=== PATIENT | female | born 1990 | race Caucasian/White ===

== ENCOUNTER 2016-12-20 11:28 | Emergency (ER) | payer OTHER ==
[2016-12-20 11:41] VITALS: BP 123/62; PULSE 86; TEMP 98.1; BMI 22.8
[2016-12-20] MEDS ORDERED: IBUPROFEN 600 MG TABLET (FP) PO ONE ×2 (12:48→12:51)
[2016-12-20] MEDS ORDERED: SULFAMETHOXAZOLE/TRIMETHOPRIM 800MG/160MG D.S. TABLET PO ONE (12:48)
[2016-12-20] MEDS ORDERED: CEPHALEXIN MONOHYDRATE 500 MG CAPSULE (UD) PO ONE (12:48)
[2016-12-20] MEDS ORDERED: SULFAMETHOXAZOLE/TRIMETHOPRIM 800MG/160MG D.S. TABLET ONE (12:51)
[2016-12-20] MEDS ORDERED: CEPHALEXIN MONOHYDRATE 500 MG CAPSULE (UD) ONE (12:51)
--- NOTE | 2016-12-20 12:54 | PDOC ---
History of Present Illness - General Chief Complaint: Abscess Boil Stated Complaint: ABSCESS BOIL Time Seen by Provider: 12/20/16 12:27 History Source: Patient Exam Limitations: No Limitations - History of Present Illness Initial Comments: 12/20/16 12:49 My chief complaint: Redness of skin the pubic area with tenderness History of present illness: Patient is a 26-year-old female with no significant medical history here today complaining of a tender reddened area pubic area since last night. Patient reports that she shaved area approximately one week ago. Patient denies ever having any skin abscesses in the past. Patient denies any fever or chills. She denies any chance of . Timing/Duration: getting worse Severity: moderate Associated Symptoms: reports: denies symptoms Past History - Past Medical History Allergies/Adverse Reactions: Allergies Allergy/AdvReac Type Severity Reaction Status Date / Time No Known Allergies Allergy Verified 12/20/16 11:41 Home Medications: Ambulatory Orders Cephalexin Monohydrate [Keflex -] 500 mg PO Q8H #20 capsule 12/20/16 Sulfamethoxazole/Trimethoprim [Bactrim Ds -] 1 tab PO BID #13 tablet 12/20/16 Other medical history: denies - Surgical History Appendectomy: Yes - Reproductive History (#): 2 Para: 2 Cervical CA: No Dysfunctional Uterine Bleeding: No Ectopic : No Endometrial CA: No Polycystic Ovaries: No Therapeutic (s) & number: No Tubal Ligation: No - Immunization History Td Vaccination: No Immunization Up to Date: No - Suicide/Smoking/Psychosocial Hx Smoking Status: No Smoking History: Never smoked Have you smoked in the past 12 months: No Number of Cigarettes Smoked Daily: 0 Cigars Per Day: 0 Information on smoking cessation initiated: No Hx Alcohol Use: No Drug/Substance Use Hx: No Substance Use Type: None Review of Systems - Review of Systems Able to Perform ROS?: Yes Constitutional: No: Symptoms Reported HEENTM: No: Symptoms Reported Respiratory: No: Symptoms reported Cardiac (ROS): No: Symptoms Reported ABD/GI: No: Symptoms Reported : No: Symptoms Reported Musculoskeletal: No: Symptoms Reported Integumentary: Yes: Erythema (tender upper pubic area ) Neurological: No: Symptoms reported *Physical Exam - Vital Signs Last Vital Signs Temp Pulse Resp BP Pulse Ox 98.1 F 86 17 123/62 100 12/20/16 11:39 12/20/16 11:39 12/20/16 11:39 12/20/16 11:39 12/20/16 11:39 - Physical Exam General Appearance: Yes: Appropriately Dressed Respiratory/Chest: positive: Lungs Clear, Normal Breath Sounds. negative: Chest Tender, Respiratory Distress Cardiovascular: positive: Regular Rhythm, Regular Rate, S1, S2 Integumentary: positive: Erythema (upper pubic area tenderness 4 cm diameter, area is non fluculent), Other Neurologic: positive: Alert, Normal Response, Responsive Medical Decision Making - Medical Decision Making 12/20/16 12:50 Patient is a 26-year-old female with no significant medical history here today complaining of a tender reddened area pubic area since last night. Patient reports that she shaved area approximately one week ago. Patient denies ever having any skin abscesses in the past. Patient denies any fever or chills. She denies any chance of . cellulitis folliculitis pubic area PLAN: keflex 500 mg po now than every 8 hrs for 7 days bactrim DS 1 tab po now than bid for 7 days ibuprofen 600 mg po now 12/20/16 12:57 *DC/Admit/Observation/Transfer Diagnosis at time of Disposition: Cellulitis of pubic region, Acute folliculitis - Discharge Dispostion Disposition: HOME Condition at time of disposition: Stable - Patient Instructions Additional Instructions: Return to emergency room if any increased redness of area involved or any fever or chills Take ibuprofen as needed as directed by educational assistant teacher for pain Apply a warm soaks every 2 hours for 15 minutes while awake for the next 2 days Patient voiced understanding of discharge instructions and all questions were answered - Post Discharge Activity Forms/Work/School Notes: Back to Work
== END 2016-12-20 13:00 | disposition home or self-care (01) ==
LOC: JERFT 11:28
DX: L03.314 Cellulitis of groin (principal); L73.8 Other specified follicular disorders
CPT/HCPCS: 99281-25

== ENCOUNTER 2016-12-26 08:19 | Emergency (ER) | payer OTHER ==
[2016-12-26 08:35] VITALS: BMI 22.8
[2016-12-26] MEDS ORDERED: IBUPROFEN 600 MG TABLET (FP) PO ONE ×2 (09:14→09:44)
--- NOTE | 2016-12-26 09:21 | PDOC ---
History of Present Illness - General Chief Complaint: Rash Stated Complaint: PAIN, REDNESS TO AFFECTED AREA Time Seen by Provider: 12/26/16 08:48 History Source: Patient Exam Limitations: No Limitations - History of Present Illness Initial Comments: 12/26/16 09:22 My chief complaint: Fever, lower back pain, right groin and right thigh tenderness, nausea last night with headache History of present illness: Patient is a 26-year-old female with no significant medical history here today complaining of sudden onset of fever with chills last night and lower back pain with slight nausea and headache. Patient reports having her right groin tenderness with inguinal lymphadenopathy since 2016. Patient is on Depo last got injection September 2016. Patient denies any abnormal vaginal discharge. Patient denies being sexually active for one any half years. Patient was here seen here on 12/20/2016 for raised tender reddened area mid pubic area (shaved area keflex and Bactrim was ordered. Patient is any urinary symptoms. Patient denies any radiation of pain from back down the legs or any weakness or numbness of legs or any saddle anesthesia or incontinency. Patient reports that she lifted a laundry basket yesterday in the morning but did not feel back pain until the evening. She denies any headache currently or any nausea or any vomiting or any diarrhea. Patient reports her bowel movements have been normal. Patient denies any sick contacts or recent travel.Patient reports seeing her primary care provider on 12/23/2016 due to tenderness of right groin area and right thigh was given a prescription for ibuprofen. She noticed petechiae of pubic area last night. Patient does not have any tenderness of left, or mid pubic area only right lateral pubic area. Differential to include PID, ovarian cyst rupture, 12/26/16 09:31 Current medication keflex 500 mg q 8 hr bactrim DS 1 tab bid Surgeries: appendectomy PCP Dr. Garcia 12/26/16 09:33 Timing/Duration: getting worse Severity: moderate Associated Symptoms: reports: fever/chills (started 12/25/16), headaches (last night ), nausea/vomiting (nausea last nigth ), other (lower back pain, rt. groin pain with lymphanopathy, rt. anterior thigh pain ) Past History - Past Medical History Allergies/Adverse Reactions: Allergies Allergy/AdvReac Type Severity Reaction Status Date / Time No Known Allergies Allergy Verified 12/26/16 08:30 Home Medications: Ambulatory Orders Cephalexin Monohydrate [Keflex -] 500 mg PO Q8H #20 capsule 12/20/16 Sulfamethoxazole/Trimethoprim [Bactrim Ds -] 1 tab PO BID #13 tablet 12/20/16 - Surgical History Appendectomy: Yes - Reproductive History (#): 2 Para: 2 Cervical CA: No Dysfunctional Uterine Bleeding: No Ectopic : No Endometrial CA: No Polycystic Ovaries: No Therapeutic (s) & number: No Tubal Ligation: No - Immunization History Td Vaccination: No Immunization Up to Date: No - Suicide/Smoking/Psychosocial Hx Smoking Status: No Smoking History: Never smoked Have you smoked in the past 12 months: No Number of Cigarettes Smoked Daily: 0 Cigars Per Day: 0 Information on smoking cessation initiated: No Hx Alcohol Use: Yes Drug/Substance Use Hx: No Substance Use Type: None Review of Systems - Review of Systems Able to Perform ROS?: Yes Constitutional: Yes: Chills, Fever HEENTM: No: Symptoms Reported Respiratory: No: Symptoms reported Cardiac (ROS): No: Symptoms Reported ABD/GI: Yes: Nausea (last night not now ) : Yes: Symptoms Reported (last night, none now ), Flank Pain (b/l ). No: Burning, Dysuria, Discharge, Frequency, Hematuria, Incontinence, Pain, Urgency Musculoskeletal: Yes: Back Pain (b/l lower back ) Integumentary: Yes: Other (petechiae public area scattered ) Neurological: Yes: Headache (last night ) *Physical Exam - Vital Signs Last Vital Signs Temp Pulse Resp BP Pulse Ox 100.1 F H 112 H 20 100/54 100 12/26/16 08:31 12/26/16 08:31 12/26/16 08:31 12/26/16 08:31 12/26/16 08:31 - Physical Exam General Appearance: Yes: Appropriately Dressed HEENT: positive: TMs Normal, Pharyngeal Erythema, Tonsillar Erythema (no uvular deviation ). negative: Tonsillar Exudate Neck: positive: Lymphadenopathy (L). negative: Lymphadenopathy (R) Respiratory/Chest: positive: Lungs Clear, Normal Breath Sounds. negative: Chest Tender, Respiratory Distress Cardiovascular: positive: Regular Rhythm, Regular Rate, S1, S2 Female Pelvic Exam: positive: cervical os closed, normal adnexa (tenderness rt. ), normal size ovaries, discharge (copius amount thick white discharge non odorous ), adnexal tenderness (rt. ). negative: CMT, lesions, Bartholin mass, Scalene Gland, uterus, Urethra, vaginal bleeding Gastrointestinal/Abdominal: positive: Normal Bowel Sounds, Soft, Tenderness ( diffuse/ rt. lower quadrant ). negative: Organomegaly, Increased Bowel Sounds, Distended, Guarding, Rebound, Hernia, Mass, Hepatomegaly, Spleenomegaly Musculoskeletal: positive: Normal Inspection, CVA Tenderness (R) (lower ), CVA Tenderness (L) (lower ). negative: CVA Tenderness, Decreased Range of Motion, Muscle Spasm, Vertebral Tenderness Integumentary: positive: Petechiae (scattered pubic area ), Other. negative: Swelling Neurologic: positive: Alert, Normal Response, Motor Strength 5/5, Respond to painful stimul, Responsive, Other (negative SLR b/l ). negative: Numbness, Sensory Deficit (legs ) Deep Tendon Reflexes: Knee (L): 4+, Knee (R): 4+ ED Treatment Course - LABORATORY CBC & Chemistry Diagram: 12/26/16 09:20 12/26/16 09:20 Medical Decision Making - Medical Decision Making 12/26/16 09:27 Patient is a 26-year-old female with no significant medical history here today complaining of sudden onset of fever with chills last night and lower back pain with slight nausea and headache. Patient reports having her right groin tenderness with inguinal lymphadenopathy since 12/23/2016. Patient is on Depo last got injection September 2016. Patient denies any abnormal vaginal discharge. Patient denies being sexually active for one any half years. Patient was here seen here on 12/20/2016 for raised tender reddened area mid pubic area (shaved area keflex and Bactrim was ordered. Patient is any urinary symptoms. Patient denies any radiation of pain from back down the legs or any weakness or numbness of legs or any saddle anesthesia or incontinency. Patient reports that she lifted a laundry basket yesterday in the morning but did not feel back pain until the evening. She denies any headache currently or any nausea or any vomiting or any diarrhea. Patient reports her bowel movements have been normal. Patient denies any sick contacts or recent travel. Patient reports seeing her primary care provider on 01/23/2017 due to tenderness of right groin area and right thigh was given a prescription for ibuprofen. She noticed petechiae of pubic area last night. Patient does not have any tenderness of left, or mid pubic area only right lateral pubic area. Differential to include PID, ovarian cyst rupture, pyelonephritis R/O PID R/O ovarian cyst rupture R/O pyelonephritis R/O STD PLAN u/a urinalysis urine C & S cbc with diff CMP RPR throat C & S influenza A & B rapid genital culture IV insert ibuprofen 600 mg po now 12/26/16 09:33 12/26/16 09:44 CBC WBC 2.6 K/mm3 (4.0-10.0) L D 12/26/16 09:20 RBC 4.15 M/mm3 (3.60-5.2) 12/26/16 09:20 Hgb 13.1 GM/dL (10.7-15.3) D 12/26/16 09:20 Hct 37.2 % (32.4-45.2) 12/26/16 09:20 MCV 89.8 fl (80-96) 12/26/16 09:20 MCH 31.7 pg (25.7-33.7) 12/26/16 09:20 MCHC 35.3 g/dl (32.0-36.0) 12/26/16 09:20 RDW 12.7 % (11.6-15.6) 12/26/16 09:20 Plt Count 167 K/MM3 (134-434) 12/26/16 09:20 MPV 8.3 fl (7.5-11.1) 12/26/16 09:20 Neutrophils % 75.1 % (42.8-82.8) 12/26/16 09:20 Lymphocytes % 9.5 % (8-40) 12/26/16 09:20 Monocytes % 13.0 % (3.8-10.2) H 12/26/16 09:20 Eosinophils % 1.7 % (0-4.5) D 12/26/16 09:20 Basophils % 0.7 % (0-2.0) 12/26/16 09:20 12/26/16 10:15 Laboratory Results 12/26/16 12/26/16 09:20 09:20 Urine Color Lt. yellow Urine Appearance Clear Urine pH 8.5 H D Urine Protein Negative Urine Glucose (UA) Negative Urine Ketones Negative Urine Blood Negative Urine Nitrite Negative Urine Bilirubin Negative Urine Urobilinogen 0.2 Urine HCG, Qual Negative 12/26/16 09:20 Group A Strep Rapid Antigen - Preliminary Throat 12/26/16 09:20 Influenza Types A,B Antigen (ED) - Preliminary Nasopharyngeal Swab - Preliminary 12/26/16 09:20 RBC 4.15 MCV 89.8 MCHC 35.3 RDW 12.7 MPV 8.3 Neutrophils % 75.1 Lymphocytes % 9.5 Monocytes % 13.0 H Eosinophils % 1.7 D Basophils % 0.7 12/26/16 10:15 Pt. transferred to main ED for further evaluation, charge nurse Peggy hilton, pt. is medically stable to be transferred to main ED, MD or CUT ROLL MACHINE OFFBEARER, PA not asigned as yet will call to speak with me when assigned 12/26/16 10:16 12/26/16 11:49 12/26/16 17:35 *DC/Admit/Observation/Transfer Diagnosis at time of Disposition: Abdominal pain in female Fever Qualifiers: Fever type: unspecified Qualified Code(s): R50.9 - Fever, unspecified; R50.9 - Fever, unspecified Back pain Qualifiers: Back pain location: low back pain Chronicity: acute Back pain laterality: unspecified Sciatica presence: without sciatica Qualified Code(s): M54.5 - Low back pain; M54.5 - Low back pain
[2016-12-26 09:42] LABS: BASOPHIL 0.7 % (0-2.0); EOSINOPHIL 1.7 % (0-4.5)
[2016-12-26 09:44] LABS: MCH 31.7 pg (25.7-33.7); MCHC 35.3 g/dl (32.0-36.0); MEAN CELL VOLUME 89.8 fl (80-96); MEAN PLT VOLUME 8.3 fl (7.5-11.1); NEUTROPHILS 75.1 % (42.8-82.8); PLATELET COUNT 167 K/MM3 (134-434); RDW 12.7 % (11.6-15.6); WHITE BLOOD COUNT 2.6 K/mm3 (4.0-10.0)
[2016-12-26 09:46] LABS: PH,URINE 8.5 (5.0-8.0); URINE APPEARANCE CLEAR; URINE BILIRUBIN NEGATIVE (NEGATIVE); URINE BLOOD NEGATIVE (NEGATIVE); URINE COLOR LT. YELLOW; URINE GLUCOSE (UA) NEGATIVE (NEGATIVE); URINE KETONE NEGATIVE (NEGATIVE); URINE NITRITE NEGATIVE (NEGATIVE); URINE PROTEIN NEGATIVE (NEGATIVE); URINE UROBILINOGEN 0.2 mg/dL (0.2-1.0)
[2016-12-26 10:14] LABS: ALBUMIN 4.2 g/dl (3.4-5.0); ALK PHOS 83 U/L (45-117); ANION GAP 7 (8-16); BILIRUBIN,TOTAL 0.5 mg/dL (0.2-1.0); CALCIUM 8.8 mg/dL (8.5-10.1); CO2 24 mmol/L (21-32); CREATININE 0.9 mg/dL (0.55-1.02); GLUCOSE,RANDOM 87 mg/dL (74-106); SGOT/AST 22 U/L (15-37); SGPT/ALT 24 U/L (12-78); TOT PROT 7.7 g/dl (6.4-8.2)
--- NOTE | 2016-12-26 12:52 | PDOC ---
*Physical Exam - Vital Signs Last Vital Signs Temp Pulse Resp BP Pulse Ox 100.1 F H 112 H 20 100/54 100 12/26/16 08:31 12/26/16 08:31 12/26/16 08:31 12/26/16 08:31 12/26/16 08:31 ED Treatment Course - LABORATORY CBC & Chemistry Diagram: 12/26/16 09:20 12/26/16 09:20 - ADDITIONAL ORDERS Additional order review: Laboratory Results 12/26/16 12/26/16 12/26/16 09:20 09:20 09:20 Sodium 135 L Potassium 4.3 D Chloride 104 Carbon Dioxide 24 Anion Gap 7 L BUN 10 D Creatinine 0.9 D Creat Clearance w eGFR > 60 Random Glucose 87 Calcium 8.8 Total Bilirubin 0.5 AST 22 ALT 24 Alkaline Phosphatase 83 Total Protein 7.7 Albumin 4.2 Urine Color Lt. yellow Urine Appearance Clear Urine pH 8.5 H D Urine Protein Negative Urine Glucose (UA) Negative Urine Ketones Negative Urine Blood Negative Urine Nitrite Negative Urine Bilirubin Negative Urine Urobilinogen 0.2 Urine HCG, Qual Negative 12/26/16 09:20 Gram Stain - Final Vaginal 12/26/16 09:20 Influenza Types A,B Antigen (ED) - Final Nasopharyngeal Swab - Final 12/26/16 09:20 Group A Strep Rapid Antigen - Final Throat 12/26/16 09:20 RBC 4.15 MCV 89.8 MCHC 35.3 RDW 12.7 MPV 8.3 Neutrophils % 75.1 Lymphocytes % 9.5 Monocytes % 13.0 H Eosinophils % 1.7 D Basophils % 0.7 - Medications Given in the ED: ED Medications Discontinued Medications Generic Name Dose Route Start Last Admin Trade Name Farshadq PRN Reason Stop Dose Admin Ibuprofen 600 mg 12/26/16 09:14 12/26/16 09:50 Motrin - PO 12/26/16 09:15 600 mg ONCE ONE Administration Medical Decision Making - Medical Decision Making Signout received from KRUNAL Roman. Briefly, this is a healthy 26 year old female who presented to [facility] on with a tender, erythematous pubic mass and was placed on Bactrim/Keflex. She subsequently saw her PCP for the same complaint and was given ibuprofen for fever. She returned to [facility] again today with fevers/chills, inguinal lymphadenopathy, headache, nausea, back pain, and pubic petechiae. She is now transferred to the Main ED for further evaluation. V/s on arrival are notable for P 112 and T 100.1(last took Motrin during the night). Surgical history: C/s x 2, appendectomy Budget Coordinator: a2 REVIEW OF SYSTEMS: GENERAL/CONSTITUTIONAL: Fevers/chills. No weakness. No weight change. HEAD, EYES, EARS, NOSE AND THROAT: No change in vision. No ear pain or discharge. No sore throat. CARDIOVASCULAR: No chest pain or palpitations. RESPIRATORY: Dr cough. No wheezing or shortness of breath. GASTROINTESTINAL:Nausea. No vomiting, diarrhea or constipation. GENITOURINARY: No dysuria, frequency, or change in urination. MUSCULOSKELETAL: Low back pain. SKIN: Pubic "red spots." NEUROLOGIC: Headache. No vertigo, loss of consciousness, or loss of sensation. PSYCHIATRIC: No depression or anxiety. ENDOCRINE: No increased thirst. No abnormal weight change. HEMATOLOGIC/LYMPHATIC: No anemia, easy bleeding, or history of blood clots. ALLERGIC/IMMUNOLOGIC: No hives or skin allergy. No latex allergy. PHYSICAL EXAM: GENERAL: The patient is awake, alert, and fully oriented, in no acute distress. HEAD: Normal with no signs of trauma. ENT: Pupils equal, round and reactive to light, extraocular movements intact, sclera anicteric, conjunctiva clear. Neck supple. Cervical adenopathy. LUNGS: Clear to auscultation bilaterally. Normal excursion. No respiratory distress or use of accessory muscles. CV: RRR, S1/S2, no MRG. Cap refill < 2 sec. ABDOMEN: Soft, non-distended, tender to palpation in RLQ. EXTREMITIES: Normal range of motion, no edema. Right inguinal adenopathy. NEUROLOGICAL: Normal speech, normal gait. CN II-XII grossly intact. PSYCH: Normal mood, normal affect. SKIN: Warm, dry, normal turgor. Petechiae on mons pubis. SUPERINTENDENT DRILLING: (Performed by KRUNAL Roman) Copius white vaginal discharge, right adnexal tenderness. A/P: 26 year old female with 3rd visit for cellulitis/abscess on mons pubis- improved with Bactrim/Keflex but now with systemic symptoms including fevers/ chills, headache, nausea. Significant adenopathy and RLQ abdominal tenderness on exam. Differential includes but is not limited to PID, TOA, UA/ pyelonephritis. 1. Labs notable for WBC 2.6 2. Will add blood cultures 3. UA is pending 4. CTAP with PO/IV contrast and pelvic u/s to r/o TOA 5. Empiric abx 12/26/16 16:55 CTAP reviewed: Partially ruptured ovarian cysts/follicles with small amount of free fluid in the right adnexa. Prominent vessels suggestive of pelvic congestion syndrome. U/s reviewed: Simple cyst/dominant follicle in the right ovary measuring 1.1cm. Prominent vessels in the right and left adnexa; correlate clinically for pelvic congestion syndrome. CXR wet read: no infiltrate Examined with attending physician Dr. Castillo. Will treat with Ceftriaxone/azithromycin for possible PID. Will need laundromat worker referral. *DC/Admit/Observation/Transfer Diagnosis at time of Disposition: Abdominal pain in female Fever Qualifiers: Qualified Code(s): R50.9 - Fever, unspecified Back pain Qualifiers: Qualified Code(s): M54.5 - Low back pain - Discharge Dispostion Disposition: HOME Condition at time of disposition: Stable Admit: No - Referrals Referrals: Linda Christie MD [Primary Care Provider] - Lulu Castano MD [Staff Physician] - Call tomorrow (x ray service technician) - Patient Instructions Printed Discharge Instructions: DI for Pelvic Inflammatory Disease Additional Instructions: -You were given antibiotics for possible pelvic inflammatory disease -Take ibuprofen 400-600mg (2-3 tablets) every 6 hours as needed for pain and fever -Please follow up with pharmacy manager (referral enclosed) and review the copies of your CT and ultrasound reports with them -You will receive a call if any of your cultures come back positive -Return here for worsening pain, persistent fevers, or any other concerning symptoms - Post Discharge Activity Forms/Work/School Notes: Back to Work
[2016-12-26] MEDS ORDERED: SODIUM CHLORIDE 1,000 ML IV STA (13:01)
[2016-12-26] MEDS ORDERED: ACETAMINOPHEN 1000 MG/100 ML VIAL (NON FORMULARY) IVPB ONE (13:01)
[2016-12-26] MEDS ORDERED: ONDANSETRON 4 MG/2 ML VIAL IVPUSH ONE (13:14)
[2016-12-26] MEDS ORDERED: ACETAMINOPHEN 325 MG TABLET (FP) PO ONE (13:14)
[2016-12-26] MEDS ORDERED: ONDANSETRON 4 MG/2 ML VIAL ONE (13:18)
[2016-12-26] MEDS ORDERED: ACETAMINOPHEN 325 MG TABLET (FP) ONE (13:18)
[2016-12-26 14:20] LABS: URINE LEUK ESTERASE Negative (NEGATIVE)
[2016-12-26] MEDS ORDERED: CEFTRIAXONE 250 MG in DEXTROSE 5%-WATER - 50 ML IVPB ONE (16:54)
[2016-12-26] MEDS ORDERED: AZITHROMYCIN 1 GM PACKET PO ONE (16:54)
[2016-12-26] MEDS ORDERED: AZITHROMYCIN 250 MG TABLET ONE (17:00)
[2016-12-26] MEDS ORDERED: cefTRIAXone SODIUM 1 GM VIAL ONE (17:01)
[2016-12-26 18:08] VITALS: BP 132/80; PULSE 92; TEMP 99.9
--- NOTE | 2016-12-27 18:34 | PDOC ---
Patient Follow-up (Call Back) - Post ED Follow - Up Chief Complaint: SIRS, Suspected/Possible Condition at time of discharge: Fair Disposition at time of original discharge: HOME Reason for Call Back: Abnwl. Microbiology (gardnerella vaginalis genital culture ) - Disposition Rx Needed: Yes (metronidazole 500mg bid x7d) Additional Instructions/Notes: spoke to pt regarding the test results. pt will f/u with her pmd and general warehouse worker
== END 2016-12-26 18:24 | disposition home or self-care (01) ==
LOC: JERFT 08:19 → JER 08:19
PROC: 3E0337Z Introduction of Electrolytic and Water Balance Substance into Peripheral Vein, Percutaneous Approach (ICD-10-PCS; principal; 2016-12-26)
PROC: 3E03329 Introduction of Other Anti-infective into Peripheral Vein, Percutaneous Approach (ICD-10-PCS; 2016-12-26)
PROC: 3E033GC Introduction of Other Therapeutic Substance into Peripheral Vein, Percutaneous Approach (ICD-10-PCS; 2016-12-26)
DX: R10.31 Right lower quadrant pain (principal); N83.201 Unspecified ovarian cyst, right side; N94.89 Other specified conditions associated with female genital organs and menstrual cycle
CPT/HCPCS: 36415; 71020-TC; 74177-TC; 76830-TC; 80053; 81003; 84703; 85025; 86593; 87040; 87070; 87086; 87205; 87430; 87491; 87591; 87804; 96361; 96365; 96375; 99282-25; Q9967

== ENCOUNTER 2017-11-27 10:13 | Emergency (ER) | payer OTHER ==
[2017-11-27 10:17] VITALS: BP 110/72; PULSE 76; TEMP 98.1; BMI 23.0
--- NOTE | 2017-11-27 11:10 | PDOC ---
History of Present Illness - General Chief Complaint: Injury Stated Complaint: RIGHT SWOLLEN TOE Time Seen by Provider: 11/27/17 10:34 History Source: Patient Exam Limitations: No Limitations - History of Present Illness Initial Comments: 11/27/17 11:11 27 yr female no PMHX dropped and video console on her right second toe 2 days ago has pain and bruising. no pain meds taken or ice applied. Past History - Past Medical History Allergies/Adverse Reactions: Allergies Allergy/AdvReac Type Severity Reaction Status Date / Time No Known Allergies Allergy Verified 11/27/17 10:16 Home Medications: Ambulatory Orders NK [No Known Home Medication] 11/27/17 Anemia: Yes Asthma: No Cancer: No Cardiac Disorders: No CVA: No COPD: No CHF: No DVT: No Dementia: No Diabetes: No GI Disorders: No Disorders: No HTN: No Hypercholesterolemia: No Liver Disease: No Seizures: No Thyroid Disease: Yes (enlarged thyroid- has appt) - Surgical History Appendectomy: Yes - Reproductive History (#): 2 Para: 2 Cervical CA: No Dysfunctional Uterine Bleeding: No Ectopic : No Endometrial CA: No Polycystic Ovaries: No Therapeutic (s) & number: No Tubal Ligation: No - Immunization History Td Vaccination: No Immunization Up to Date: Yes - Suicide/Smoking/Psychosocial Hx Smoking Status: No Smoking History: Unknown if ever smoked Have you smoked in the past 12 months: No Number of Cigarettes Smoked Daily: 0 Cigars Per Day: 0 Hx Alcohol Use: No Drug/Substance Use Hx: No Substance Use Type: None Review of Systems - Review of Systems Able to Perform ROS?: Yes Is the patient limited Martiniquais proficient: No Musculoskeletal: Yes: Symptoms Reported *Physical Exam - Vital Signs Last Vital Signs Temp Pulse Resp BP Pulse Ox 98.1 F 76 18 110/72 99 11/27/17 10:14 11/27/17 10:14 11/27/17 10:14 11/27/17 10:14 11/27/17 10:14 - Physical Exam General Appearance: Yes: Nourished, Appropriately Dressed HEENT: positive: EOMI, EDEL Extremity: positive: Tender, Swelling, Erythema (right second digit, nail intact , nv intact) Integumentary: positive: Normal Color, Dry, Warm Neurologic: positive: Fully Oriented, Alert, Normal Mood/Affect, Normal Response , Motor Strength 5/5 Procedures - Splinting Pre-Proc Neuro Vasc Exam: normal Post-Proc Neuro Vasc Exam: normal Progress: 11/27/17 11:29 willian tape right second digit pt tolerated well ED Treatment Course - RADIOLOGY Radiology Studies Ordered: Category Date Time Status TOE(S) RIGHT [RAD] Stat Radiology 11/27/17 10:36 Completed Medical Decision Making - Medical Decision Making 11/27/17 11:11 cc: accidental dropped video console on her toe 2 days ago will get xray to r/o fracture willian taped follow up instructions given all questions asked and answered negative fracture *DC/Admit/Observation/Transfer Diagnosis at time of Disposition: Contusion, toe Qualifiers: Encounter type: initial encounter Toe: lesser toe Damage to nail status: with damage Laterality: right Qualified Code(s): S90.221A - Contusion of right lesser toe(s) with damage to nail, initial encounter - Discharge Dispostion Disposition: HOME Condition at time of disposition: Good - Referrals Referrals: Oskar Barnes MD [Staff Physician] - - Patient Instructions Additional Instructions: apply ice every 2hrs for 20 minutes while awake for today take ibuprofen (motrin, advil ) 600mg every 6hrs for pain as needed wear protective comfortable shoes this may take a few weeks to completely heal as a bruised toe can be very uncomfortable follow with the light rail vehicle operator for any concerns - Post Discharge Activity Forms/Work/School Notes: Back to Work
== END 2017-11-27 11:19 | disposition home or self-care (01) ==
LOC: JERFT 10:13 → JER 10:13 → JERFT 11:19
DX: S90.221A Contusion of right lesser toe(s) with damage to nail, initial encounter (principal); W22.8XXA Striking against or struck by other objects, initial encounter; Y93.89 Activity, other specified; Y92.89 Other specified places as the place of occurrence of the external cause; Y99.8 Other external cause status
CPT/HCPCS: 73660-TC-FY; 99281-25

== ENCOUNTER 2018-04-25 09:36 | Emergency (ER) | payer OTHER ==
[2018-04-25 10:02] VITALS: BP 90/54; PULSE 88; TEMP 97.6; BMI 23.0
--- NOTE | 2018-04-25 11:18 | PDOC ---
History of Present Illness - General Chief Complaint: Injury Stated Complaint: BROKE NAIL Time Seen by Provider: 04/25/18 11:01 - History of Present Illness Initial Comments: 04/25/18 11:13 27-year-old female presents for evaluation of left fifth fingernail avulsion. She states she hit her nail into her steering wheel and her nail came off her finger this happened just prior to arrival. Past History - Past Medical History Allergies/Adverse Reactions: Allergies Allergy/AdvReac Type Severity Reaction Status Date / Time No Known Allergies Allergy Verified 04/25/18 09:59 Home Medications: Ambulatory Orders NK [No Known Home Medication] 11/27/17 Anemia: Yes Asthma: No Cancer: No Cardiac Disorders: No CVA: No COPD: No CHF: No DVT: No Dementia: No Diabetes: No GI Disorders: No Disorders: No HTN: No Hypercholesterolemia: No Liver Disease: No Seizures: No Thyroid Disease: Yes (enlarged thyroid- has appt) - Surgical History Appendectomy: Yes - Reproductive History (#): 2 Para: 2 Cervical CA: No Dysfunctional Uterine Bleeding: No Ectopic : No Endometrial CA: No Polycystic Ovaries: No Therapeutic (s) & number: No Tubal Ligation: No - Immunization History Td Vaccination: No Immunization Up to Date: Yes - Suicide/Smoking/Psychosocial Hx Smoking Status: No Smoking History: Never smoked Have you smoked in the past 12 months: No Number of Cigarettes Smoked Daily: 0 Cigars Per Day: 0 Information on smoking cessation initiated: No Hx Alcohol Use: No Drug/Substance Use Hx: No Substance Use Type: None Review of Systems - Review of Systems Integumentary: Yes: See HPI *Physical Exam - Vital Signs Last Vital Signs Temp Pulse Resp BP Pulse Ox 97.6 F 88 16 90/54 L 100 04/25/18 09:59 04/25/18 09:59 04/25/18 09:59 04/25/18 09:59 04/25/18 09:59 - Physical Exam Comments: 04/25/18 11:14 Left fifth finger skin color and temperature are normal. The nail is loose from the nail bed. There is dried blood underneath the nail. There are no gross sensorimotor deficits. FDS and FDP work independently. Moderate Sedation - Procedure Monitoring Vital Signs: Procedure Monitoring Vital Signs Temperature 97.6 F 04/25/18 09:59 Pulse Rate 88 04/25/18 09:59 Respiratory Rate 16 04/25/18 09:59 Blood Pressure 90/54 L 04/25/18 09:59 O2 Sat by Pulse Oximetry (%) 100 04/25/18 09:59 Medical Decision Making - Medical Decision Making 04/25/18 11:14 Under aseptic technique 6 mL of 1% lidocaine was used for digital block. After appropriate anesthesia the nail was trimmed to about a 2 mm proximal to the distal nail crease. This was tolerated well a dry sterile dressing was placed hand surgery follow-up recommended. *DC/Admit/Observation/Transfer Diagnosis at time of Disposition: Nail avulsion, finger - Discharge Dispostion Disposition: HOME Condition at time of disposition: Stable Decision to Admit order: No - Referrals Referrals: Linda Christie MD [Primary Care Provider] - Tony Paiz MD [Staff Physician] - - Patient Instructions Printed Discharge Instructions: DI for Nail Avulsion Injury Additional Instructions: Return to the emergency room for worsening of symptoms. Follow-up with hand surgery in 1-2 days for further evaluation and treatment options. Please keep the dressing on for the next 24 hours. After 24 hours and may remove the dressing and wash her hand with soap and water. Leave it open to air. Should there be any redness drainage or swelling please report back to the emergency room these may be signs of infection. May take Tylenol and Motrin as directed for any discomfort. - Post Discharge Activity
== END 2018-04-25 11:23 | disposition home or self-care (01) ==
LOC: JERFT 09:36
PROC: 0HBQXZZ Excision of Finger Nail, External Approach (ICD-10-PCS; principal; 2018-04-25)
DX: S61.307A Unspecified open wound of left little finger with damage to nail, initial encounter (principal); V48.0XXA Car driver injured in noncollision transport accident in nontraffic accident, initial encounter; Y92.488 Other paved roadways as the place of occurrence of the external cause; Y93.89 Activity, other specified; Y99.8 Other external cause status
CPT/HCPCS: 99281-25

== ENCOUNTER 2019-01-22 13:26 | Emergency (ER) | payer OTHER ==
[2019-01-22 13:30] VITALS: BP 111/62; PULSE 86; TEMP 98; BMI 23.0
[2019-01-22] MEDS ORDERED: IBUPROFEN 600 MG TABLET (FP) PO ONE ×2 (15:32→15:36)
--- NOTE | 2019-01-22 15:34 | PDOC ---
History of Present Illness - General Chief Complaint: Injury Stated Complaint: HAND INJURY Time Seen by Provider: 01/22/19 14:56 History Source: Patient Exam Limitations: No Limitations Past History - Travel Traveled outside of the country in the last 30 days: No Close contact w/someone who was outside of country & ill: No - Past Medical History Allergies/Adverse Reactions: Allergies Allergy/AdvReac Type Severity Reaction Status Date / Time No Known Allergies Allergy Verified 01/22/19 13:30 Home Medications: Ambulatory Orders NK [No Known Home Medication] 11/27/17 Anemia: Yes Asthma: No Cancer: No Cardiac Disorders: No CVA: No COPD: No CHF: No DVT: No Dementia: No Diabetes: No GI Disorders: No Disorders: No HTN: No Hypercholesterolemia: No Liver Disease: No Seizures: No Thyroid Disease: Yes (enlarged thyroid- has appt) - Surgical History Appendectomy: Yes - Reproductive History (#): 2 Para: 2 Cervical CA: No Dysfunctional Uterine Bleeding: No Ectopic : No Endometrial CA: No Polycystic Ovaries: No Therapeutic (s) & number: No Tubal Ligation: No - Immunization History Td Vaccination: No Immunization Up to Date: Yes - Psycho Social/Smoking Cessation Hx Smoking Status: No Smoking History: Never smoked Have you smoked in the past 12 months: No Number of Cigarettes Smoked Daily: 0 Cigars Per Day: 0 Hx Alcohol Use: No Drug/Substance Use Hx: No Substance Use Type: None Review of Systems - Review of Systems Able to Perform ROS?: Yes Comments:: 01/22/19 15:31 CONSTITUTIONAL: Absent: fever, chills, diaphoresis, generalized weakness, malaise, loss of appetite HEENT: Absent: rhinorrhea, nasal congestion, throat pain, throat swelling, difficulty swallowing, mouth swelling, ear pain, eye pain, visual Changes MUSCULOSKELETAL: Present: R hand pain Absent: myalgia, joint swelling SKIN: Absent: rash, itching, pallor NEUROLOGIC: Absent: headache, focal weakness or paresthesias, dizziness, unsteady gait, seizure, mental status changes, bladder or bowel incontinence PSYCHIATRIC: Absent: anxiety, depression, suicidal or homicidal ideation, hallucinations. Is the patient limited Albanian proficient: No *Physical Exam - Vital Signs Last Vital Signs Temp Pulse Resp BP Pulse Ox 98 F 86 18 111/62 99 01/22/19 13:27 01/22/19 13:27 01/22/19 13:27 01/22/19 13:27 01/22/19 13:27 - Physical Exam Comments: 01/22/19 16:15 GENERAL: The patient is awake, alert, and fully oriented, in no acute distress. HEAD: Normal with no signs of trauma. EYES: Pupils equal, round and reactive to light, extraocular movements intact, sclera anicteric, conjunctiva clear. EXTREMITIES: Tenderness to palpation over the right fourth and fifth knuckles. Normal range of motion in the right hand. No obvious bruising or deformities. Normal range of motion, no edema. NEUROLOGICAL: Normal speech, normal gait. PSYCH: Normal mood, normal affect. SKIN: Warm, Dry, normal turgor, no rashes or lesions noted. Medical Decision Making - Medical Decision Making 01/22/19 16:20 The patient is a 28-year-old male no past medical history who presents to the ER today with right hand pain after punching a wall today. She states she bends well with her right hand. She is right-hand dominant. She is now complaining of pain over her right fourth and fifth fingers. Denies fevers, chills, numbness and tingling and weakness the affected extremity. A/P: Hand pain On exam tenderness palpation over the fourth and fifth right knuckles. No obvious deformity or bruising X-ray is negative for fractures as read by myself. Pain likely due to hitting the ulnar nerve distribution. Motrin given with relief of symptoms Discharge home with hand follow-up I discussed the physical exam findings, ancillary test results and final diagnoses with the patient. I answered all of the patient's questions. The patient was satisfied with the care received and felt comfortable with the discharge plan and treatment plan. The Patient agrees to follow up with the primary care physician/specialist within 24-72 hours. Return precautions were given. Discharge - Discharge Information Problems reviewed: Yes Clinical Impression/Diagnosis: Right hand pain Condition: Stable Disposition: HOME - Admission No - Follow up/Referral Referrals: Gildardo Garland MD [Staff Physician] - - Patient Discharge Instructions Patient Printed Discharge Instructions: DI for Hand Pain Additional Instructions: You were evaluated for your hand pain today. Your x-rays do not reveal any broken bones. You most likely hit a nerve which is what is causing your pain. Please take Motrin 600 mg every 6 hours as needed for pain You may apply ice for 20-minute intervals over the next 24 to 48 hours Follow-up with orthopedics within 3 to 5 days if your symptoms are not improving. A referral has been provided. Return to the ER for any new or worsening symptoms. - Post Discharge Activity Work/Back to School Note: Back to Work
== END 2019-01-22 15:45 | disposition home or self-care (01) ==
LOC: JERFT 13:26
DX: S69.81XA Other specified injuries of right wrist, hand and finger(s), initial encounter (principal); M79.641 Pain in right hand; W22.09XA Striking against other stationary object, initial encounter; Y93.89 Activity, other specified; Y92.038 Other place in apartment as the place of occurrence of the external cause; Y99.8 Other external cause status
CPT/HCPCS: 73130-TC-RT-FY; 99282-25

== ENCOUNTER 2021-06-25 09:19 | Emergency (ER) | payer OTHER ==
[2021-06-25 09:32] VITALS: BP 114/71; PULSE 87; TEMP 97.4; BMI 23.9
[2021-06-25 11:31] LABS: EOS % 6.5 % (0-4.5); HEMATOCRIT 35.8 % (32.4-45.2); HEMOGLOBIN 12.3 GM/dL (10.7-15.3); LYMPH % 32.3 % (8-40); MCH 30.5 pg (25.7-33.7); MCHC 34.4 g/dl (32.0-36.0); MEAN CELL VOLUME 88.6 fl (80-96); MEAN PLT VOLUME 7.9 fl (7.5-11.1); MONO % 8.3 % (3.8-10.2); NEUT % 51.9 % (42.8-82.8); PLATELET COUNT 257 10^3/uL (134-434); RBC 4.04 M/mm3 (3.60-5.2); RDW 13.1 % (11.6-15.6); WHITE BLOOD COUNT 4.8 K/mm3 (4.0-10.0)
[2021-06-25 11:58] LABS: CALCIUM 8.6 mg/dL (8.5-10.1)
[2021-06-25 11:59] LABS: ALBUMIN 3.8 g/dl (3.4-5.0)
[2021-06-25 12:02] LABS: CREATININE 0.6 mg/dL (0.55-1.3)
[2021-06-25 12:04] LABS: BILIRUBIN,TOTAL 0.7 mg/dL (0.2-1); TOT PROT 7.5 g/dl (6.4-8.2)
[2021-06-25 13:44] LABS: URINE APPEARANCE CLEAR; URINE BILIRUBIN NEGATIVE (NEGATIVE); URINE COLOR YELLOW; URINE GLUCOSE (UA) NEGATIVE (NEGATIVE); URINE KETONE 2+ (NEGATIVE); URINE LEUK ESTERASE NEGATIVE (NEGATIVE); URINE NITRITE NEGATIVE (NEGATIVE); URINE PROTEIN NEGATIVE (NEGATIVE); URINE UROBILINOGEN 0.2 mg/dL (0.2-1.0)
== END 2021-06-25 15:21 | disposition home or self-care (01) ==
LOC: JER 09:19
DX: O26.891 Other specified pregnancy related conditions, first trimester (principal); R10.30 Lower abdominal pain, unspecified; Z3A.01 Less than 8 weeks gestation of pregnancy
CPT/HCPCS: 36415; 76817-TC; 80053; 81003; 84702; 85025; 87086; 99284-25

== ENCOUNTER 2021-06-27 11:35 | Emergency (ER) | payer OTHER ==
[2021-06-27 11:55] VITALS: BP 123/79; PULSE 120; TEMP 98; BMI 22.1
== END 2021-06-27 14:06 | disposition home or self-care (01) ==
LOC: JERFT 11:35 → JER 11:35 → JERFT 14:06
DX: O02.81 Inappropriate change in quantitative human chorionic gonadotropin (hCG) in early pregnancy (principal)
CPT/HCPCS: 36415; 84702; 86850; 86900; 86901; 99283-25

== ENCOUNTER 2021-07-23 08:55 | Emergency (ER) | payer OTHER ==
[2021-07-23 09:09] VITALS: BP 105/62; PULSE 50; TEMP 97.8; BMI 25.1
[2021-07-23] MEDS ORDERED: SODIUM CHLORIDE 1,000 ML IV STA (10:04)
[2021-07-23 10:54] LABS: HCG,QUALITATIVE URINE Positive
[2021-07-23 10:55] LABS: PH,URINE 7.5 (5.0-8.0); URINE APPEARANCE CLEAR; URINE BILIRUBIN NEGATIVE (NEGATIVE); URINE COLOR YELLOW; URINE GLUCOSE (UA) NEGATIVE (NEGATIVE); URINE KETONE NEGATIVE (NEGATIVE); URINE LEUK ESTERASE NEGATIVE (NEGATIVE); URINE NITRITE NEGATIVE (NEGATIVE); URINE PROTEIN NEGATIVE (NEGATIVE)
[2021-07-23 11:07] LABS: BASO % 0.6 % (0-2.0); EOS % 2.9 % (0-4.5); HEMATOCRIT 34.4 % (32.4-45.2); LYMPH % 20.7 % (8-40); MCH 30.7 pg (25.7-33.7); MCHC 34.9 g/dl (32.0-36.0); MEAN PLT VOLUME 7.9 fl (7.5-11.1); MONO % 7.8 % (3.8-10.2); PLATELET COUNT 240 10^3/uL (134-434); RBC 3.91 M/mm3 (3.60-5.2); WHITE BLOOD COUNT 6.9 K/mm3 (4.0-10.0)
[2021-07-23 11:20] LABS: ALBUMIN 3.8 g/dl (3.4-5.0); BLOOD UREA NITROGEN 6.8 mg/dL (7-18)
[2021-07-23 11:21] LABS: CALCIUM 9.6 mg/dL (8.5-10.1)
[2021-07-23 11:25] LABS: CREATININE 0.4 mg/dL (0.55-1.3)
[2021-07-23 11:26] LABS: BILIRUBIN,TOTAL 0.7 mg/dL (0.2-1)
[2021-07-23 11:34] LABS: ACTIVATED PTT 32.5 SECONDS (25.2-36.5); INR 1.07 (0.83-1.09); PROTHROMBIN TIME (PATIENT) 12.3 SEC (9.7-13.0)
== END 2021-07-23 13:00 | disposition home or self-care (01) ==
LOC: JER 08:55 → JERFT 08:55
PROC: 3E0337Z Introduction of Electrolytic and Water Balance Substance into Peripheral Vein, Percutaneous Approach (ICD-10-PCS; principal; 2021-07-23)
DX: O26.851 Spotting complicating pregnancy, first trimester (principal); Z3A.08 8 weeks gestation of pregnancy
CPT/HCPCS: 36415; 76817-TC; 80053; 81003; 84702; 84703; 85025; 85610; 85730; 86850; 86900; 86901; 99284-25

== ENCOUNTER 2022-10-26 10:12 | Emergency (ER) | payer OTHER ==
[2022-10-26 10:18] VITALS: BP 129/85; PULSE 80; RESP 18; TEMP 98; BMI 25.4
[2022-10-26] MEDS ORDERED: KETOROLAC TROMETHAMINE 15 MG/ML VIAL IM ONE (11:11)
[2022-10-26] MEDS ORDERED: KETOROLAC TROMETHAMINE 30 MG/1 ML VIAL ONE (11:19)
== END 2022-10-26 12:45 | disposition home or self-care (01) ==
LOC: JERFT 10:12 → JER 10:12 → JERFT 12:45
PROC: 3E0233Z Introduction of Anti-inflammatory into Muscle, Percutaneous Approach (ICD-10-PCS; principal; 2022-10-26)
DX: M54.50 Low back pain, unspecified (principal); R51.9 Headache, unspecified; M54.6 Pain in thoracic spine; V43.52XA Car driver injured in collision with other type car in traffic accident, initial encounter; Y93.I9 Activity, other involving external motion
CPT/HCPCS: 99284-25

== ENCOUNTER 2023-06-06 10:33 | Emergency (ER) | payer OTHER ==
[2023-06-06 11:30] VITALS: BMI 26.0
[2023-06-06] MEDS ORDERED: LIDOCAINE 5% TOPICAL PATCH TP ONE (12:08)
[2023-06-06 12:20] LABS: PH,URINE 7.5 (5.0-8.0); URINE APPEARANCE CLEAR; URINE BILIRUBIN NEGATIVE (NEGATIVE); URINE COLOR YELLOW; URINE GLUCOSE (UA) NEGATIVE (NEGATIVE); URINE KETONE TRACE (NEGATIVE); URINE LEUK ESTERASE NEGATIVE (NEGATIVE); URINE NITRITE NEGATIVE (NEGATIVE); URINE PROTEIN NEGATIVE (NEGATIVE)
[2023-06-06 12:24] LABS: HCG,QUALITATIVE URINE Negative
[2023-06-06] MEDS ORDERED: KETOROLAC TROMETHAMINE 60 MG/2 ML VIAL ONE (12:30)
[2023-06-06] MEDS ORDERED: METHOCARBAMOL 500 MG TABLET ONE (12:30)
[2023-06-06] MEDS: METHOCARBAMOL 500 MG TABLET PO ONE (12:43)
[2023-06-06] MEDS: KETOROLAC TROMETHAMINE 60 MG/2 ML VIAL IM ONE (12:43)
[2023-06-06] MEDS ORDERED: ACETAMINOPHEN 500 MG TABLET (FP) ONE (12:50)
[2023-06-06] MEDS: ACETAMINOPHEN 500 MG TABLET (FP) PO ONE (12:52)
[2023-06-06 13:36] VITALS: BP 133/8; PULSE 83; RESP 13; TEMP 98.1
[2023-06-06] MEDS ORDERED: LIDOCAINE PATCH REMOVAL MC SCH (22:00)
== END 2023-06-06 13:36 | disposition home or self-care (01) ==
LOC: JER 10:33
PROC: 3E0233Z Introduction of Anti-inflammatory into Muscle, Percutaneous Approach (ICD-10-PCS; principal; 2023-06-06)
DX: M54.16 Radiculopathy, lumbar region (principal); M54.50 Low back pain, unspecified
CPT/HCPCS: 72100-TC-FY; 81003; 84703; 99284-25

== ENCOUNTER 2023-10-24 04:29 | Day surgery (SDC) | payer OTHER ==
[2023-10-21 15:35] VITALS: BMI 26.4
[2023-10-24] MEDS ORDERED: LIDOCAINE HCL/PF 1% SDV 5ML VIAL ONE (07:18)
[2023-10-24] MEDS ORDERED: DEXAMETHASONE SOD PHOSPHATE 10 MG/1 ML VIAL ONE (07:18)
[2023-10-24] MEDS ORDERED: BUPIVACAINE HCL/PF 0.25% (2.5MG/ML) 10 ML VIAL ONE (07:54)
[2023-10-24 08:10] VITALS: RESP 20
[2023-10-24] MEDS ORDERED: MIDAZOLAM HCL 2 MG/2 ML SINGLE DOSE VIAL ONE ×2 (09:29→09:40)
[2023-10-24 12:00] VITALS: BP 110/74; PULSE 70; TEMP 97.8
== END 2023-10-24 12:30 | disposition home or self-care (01) ==
LOC: JASU-SURG 04:29
PROVIDERS: ATTEND Physical Medicine & Rehabilitation
PROC: 3E0R3BZ Introduction of Anesthetic Agent into Spinal Canal, Percutaneous Approach (ICD-10-PCS; 2023-10-24)
PROC: 3E0R33Z Introduction of Anti-inflammatory into Spinal Canal, Percutaneous Approach (ICD-10-PCS; principal; 2023-10-24 10:00)
DX: M54.16 Radiculopathy, lumbar region (principal)
CPT/HCPCS: 76000-TC-FY; 81025; J1100